=== PATIENT | female | born 1955 | race Caucasian/White ===

== ENCOUNTER → 2018-07-09 | Outpatient (CLI) | payer BC | LOC: MC.RAD 08:50 | DX: Z12.31 Encounter for screening mammogram for malignant neoplasm of breast (principal) ==

== ENCOUNTER 2019-02-26 08:49 | Inpatient (IN) | payer BC ==
[~2019-02-26] VITALS: Ht 157.5 cm; Wt 44.5 kg
[2019-02-26] VITALS (10 sets, daily range): BP systolic 104–119; BP diastolic 55–61; PULSE 62–82; TEMP 98.1–98.5
[2019-02-26] MEDS ORDERED: NORVASC 10MG10 MG PO (09:50)
[2019-02-26] MEDS ORDERED: COZAAR100 MG PO (09:50)
[2019-02-26] MEDS ORDERED: MULTI VITAMINS1 TAB PO (09:51)
[2019-02-26 09:54] LABS: INR 0.9 (0.8-3.0)
[2019-02-26 09:57] LABS: PARTIAL THROMBOPLASTIN TIME 28.6 SECONDS (26.0-37.0)
[2019-02-26 09:59] LABS: BASO % 0.4 % (0.0-2.0); GRAN # 6.6 (1.4-6.5); GRAN % 79.6 % (42.2-75.2); HEMOGLOBIN 12.7 g/dl (12.5-16.0); LYMPH # 0.8 (1.2-3.4); LYMPH % 9.3 % (20.0-51.0); MEAN CELL VOLUME 98 fl (80.0-100.0); MEAN CORPUSCULAR HEMOGLOBIN 33 pg (27.0-31.0); MEAN CORPUSCULAR HGB CONC 33 g/dl (33.0-37.0); MEAN PLATELET VOLUME 10.2 fl (7.4-10.4); MONO # 0.9 (0.1-0.6); MONO % 10.3 % (1.7-9.3); PLATELET COUNT 255 K/mm3 (130-400); RED BLOOD COUNT 3.86 M/mm3 (4.10-5.30); REDCELL DISTRIBUTION WIDTH-CV 12.5 % (11.5-14.5)
[2019-02-26 10:03] LABS: ALBUMIN 4.7 gm/dL (3.5-5.0); BILIRUBIN,TOTAL 0.7 mg/dL (0.0-1.0); C-REACTIVE PROTEIN 1.2 mg/dL (0.0-0.9); CALCIUM 10.6 mg/dL (8.4-10.2); CREATININE, serum 0.59 (0.52-1.25); POTASSIUM 3.6 mmol/L (3.4-5.0); TOTAL PROTEIN 8.2 gm/dL (6.4-8.2)
[2019-02-26] MEDS ORDERED: VITAMIN D 1001000 IU PO (11:09)
--- NOTE | 2019-02-26 12:20 | NUR ---
PATIENT ADMITED FROM IN INTO ROOM 325 WITH LEFT HIP FX AND LEFT WRIST SPRAIN WITH BRACE INPLACE. LLE IS EXTERNALLY ROTATED AND SHORTENED. PATIENT NOT C/O PAIN AT REST. PATIENT GIVEN FENTANYL IN ER. POSITIVE PEDAL PULSES TO BLE. TEDS TO RLE. SCDS TO BLE. ARANDA TO DEPENDENT DRAINAGE WITH SMALL AMOUNTS OF KERI COLORED URINE NOTED. IV FLUIDS INFUSING VIA PUMP INTO RIGHT AC IV. HEAD TO TOE ASSESSMENT WNL. AT BEDSIDE. ORIENTED TO ROOM. VSS. NPO. SEE ORDERS.
--- NOTE | 2019-02-26 12:30 | NUR ---
ORTHO AT BEDSIDE.
--- NOTE | 2019-02-26 12:50 | NUR ---
HOSPITALIST AT BEDSIDE.
[2019-02-26 13:06] LABS: COLLECTION METHOD CATHETER
[2019-02-26 13:25] LABS: PH 7 (5-8); SQUAMOUS EPITHELIAL 0-2 /hpf; URINE APPEARANCE Clear; URINE BACTERIA None Seen /hpf; URINE BILIRUBIN Negative (NEGATIVE); URINE BLOOD Negative (NEGATIVE); URINE COLOR Yellow; URINE GLUCOSE Negative (NEGATIVE); URINE KETONE Trace (NEGATIVE); URINE LEUKOCYTE ESTERASE Negative (NEGATIVE); URINE NITRATE Negative (NEGATIVE); URINE PROTEIN(semi-quant) Negative (NEGATIVE); URINE RBC 0-2 /hpf; URINE UROBILINOGEN Negative (NEGATIVE)
--- NOTE | 2019-02-26 17:40 | NUR ---
PATIENT BACK IN ROOM 325 POST OP LEFT HIP HEMIARTHROPLASTY. LEFT HIP DRESSING IS CD&I WITH AQUACEL AND ICE PACK INPLACE. POSITIVE PEDAL PULSES TO BLE. TEDS & SCD'S TO BLE. ARANDA TO DEPENDENT DRAINAGE WITH SMALL AMOUNTS OF CLEAR YELLOW URINE NOTED. IV FLUIDS INFUSING INTO RIGHT AC IV. HEAD TO TOE WNL. VSS. NO C/O PAIN. AT BEDSIDE. CALL LIGHT IN REACH. STUDENT NURSE WORKING WITH PATIENT TODAY.
--- NOTE | 2019-02-26 18:08 | NUR ---
pt spouse is here to visit. complains of eye irritation and tearing. pt resting in bed, lowest position, call light in reach.
--- NOTE | 2019-02-26 20:43 | NUR ---
PATIENT COMPLAINS OF PAIN TO LEFT HIP, 11/04. MEDICATED WITH SCHEDULED ES TYLENOL AND IV TORADOL 15MG. AQUACEL D/I. HAS SPLINT TO LEFT FOREARM, FINGERS ARE WARM TO TOUCH AND WIGGLES THEM WITHOUT PROBLEM. IVF INFUSING TO RIGHT AC WITHOUT REDNESS OR SWELLING. PATIENT DID NOT EAT SUPPER AND IS NOT DRINKING MUCH FLUID. ARANDA PATENT WITH YELLOW URINE.
[2019-02-27] VITALS (7 sets, daily range): BP systolic 93–120; BP diastolic 47–60; PULSE 66–86; TEMP 98–99.8
--- NOTE | 2019-02-27 01:15 | NUR ---
PATIENT REPORTS PAIN 7/10 TO LEFT HIP. MEDICATED WITH NORCO 7.5MG 1 TAB AT THIS TIME.
--- NOTE | 2019-02-27 03:00 | NUR ---
PATIENT REPORTS GOOD PAIN RELIEF WITH NORCO.
[2019-02-27 06:53] LABS: BASO % 0.5 % (0.0-2.0); EOS # 0.1 (0.0-0.7); EOS % 1.4 % (0-4.0); GRAN # 3.5 (1.4-6.5); LYMPH # 1.2 (1.2-3.4); LYMPH % 21.3 % (20.0-51.0); MEAN CELL VOLUME 100 fl (80.0-100.0); MEAN CORPUSCULAR HGB CONC 33 g/dl (33.0-37.0); MEAN PLATELET VOLUME 10.7 fl (7.4-10.4); MONO # 0.8 (0.1-0.6); MONO % 13.6 % (1.7-9.3); RED BLOOD COUNT 2.97 M/mm3 (4.10-5.30); REDCELL DISTRIBUTION WIDTH-CV 12.6 % (11.5-14.5)
[2019-02-27 07:02] LABS: CALCIUM 8.4 mg/dL (8.4-10.2); CREATININE, serum 0.54 (0.52-1.25); POTASSIUM 3.3 mmol/L (3.4-5.0)
[2019-02-27 07:19] LABS: HEMATOCRIT 29.7 % (37.0-47.0); HEMOGLOBIN 9.9 g/dl (12.5-16.0); MEAN CORPUSCULAR HEMOGLOBIN 33 pg (27.0-31.0); PLATELET COUNT 148 K/mm3 (130-400)
--- NOTE | 2019-02-27 07:46 | NUR ---
SWATHI RENAE CALLED AND NOTIFIED OF PATIENTS HGB:9.9 AND PLT OF 148. RE-CHECK CBC IN AM TORB BIANCA SILVA TO THIS NURSE.
--- NOTE | 2019-02-27 08:00 | NUR ---
SEE MORNING ASSESSMENT.
--- NOTE | 2019-02-27 10:44 | NUR ---
SW met with the patient to discuss discharge plan. The patient lives in [place] with her , Geovanny (ph#[phone]). She reports independence with ADLs and does not have any DME. The patient's PCP is Dr. Elba Rose and she receives her medications at [facility]. She reports no difficulties obtaining her meds. The patient does not have advanced directives completed, but she was interested in obtaining a form for DPOA-HC. THOMAS provided. The patient has a left hip fracture. THOMAS discussed post-acute rehab. The patient reports that she would like to see how she does with PT, before making a decision on the type of therapy she will need. PT/OT have been ordered. SW to continue to follow.
--- NOTE | 2019-02-27 11:58 | NUR ---
stopped by but nothing needed at this time.
--- NOTE | 2019-02-27 12:06 | NUR ---
PATIENT REPORTS THAT HER PAIN IS A 6/10 TO THE LEFT HIP AND THIGH AFTER TAKING NORCO. PATIENT DESCRIBES THE PAIN AN ACHY PAIN. PATIENT GIVEN A DOSE OF PRN TORADOL IV. WILL CONTINUE TO MONITOR.
--- NOTE | 2019-02-27 12:36 | NUR ---
UPON REASSESSMENT THE PATIENT STATES THAT HER PAIN IS NOW A 3/10 ON A 0-10 SCALE.
--- NOTE | 2019-02-27 18:05 | NUR ---
PATIENTS ARANDA CATHETER DISCONTINUED PER DR. ORDERS. PATIENT TOLERATED WELL.
--- NOTE | 2019-02-27 18:10 | NUR ---
PATIENT VOIDING POST ARANDA REMOVAL WITHOUT ANY DIFFICULTY.
--- NOTE | 2019-02-27 19:05 | NUR ---
REPORT GIVEN TO MONAE HINES.
[2019-02-27 20:05] LABS: HEMATOCRIT 28.7 % (37.0-47.0); HEMOGLOBIN 9.6 g/dl (12.5-16.0)
[2019-02-28 02:20] VITALS: BP 119/61; PULSE 81; TEMP 98.4
[2019-02-28 06:58] LABS: BASO # 0.1 (0.0-0.2); BASO % 0.6 % (0.0-2.0); EOS # 0.1 (0.0-0.7); EOS % 1.6 % (0-4.0); GRAN # 6.5 (1.4-6.5); GRAN % 74.6 % (42.2-75.2); LYMPH # 0.9 (1.2-3.4); LYMPH % 10.2 % (20.0-51.0); MEAN CELL VOLUME 100 fl (80.0-100.0); MEAN CORPUSCULAR HGB CONC 34 g/dl (33.0-37.0); MONO # 1.1 (0.1-0.6); MONO % 12.7 % (1.7-9.3); PLATELET COUNT 163 K/mm3 (130-400); RED BLOOD COUNT 2.93 M/mm3 (4.10-5.30); REDCELL DISTRIBUTION WIDTH-CV 12.3 % (11.5-14.5)
[2019-02-28 07:01] LABS: HEMATOCRIT 29.2 % (37.0-47.0); HEMOGLOBIN 9.8 g/dl (12.5-16.0); MEAN CORPUSCULAR HEMOGLOBIN 33 pg (27.0-31.0)
[2019-02-28 07:06] LABS: CREATININE, serum 0.54 (0.52-1.25); MAGNESIUM 1.6 mg/dL (1.6-2.3); POTASSIUM 3.7 mmol/L (3.4-5.0)
--- NOTE | 2019-02-28 07:10 | NUR ---
RESTING QUIETLY/SLEEPING. NO N/V. NEW ICE APPLIED.
--- NOTE | 2019-02-28 08:00 | NUR ---
PATIENT IS AMBULATING IN HALLS WITH PT THIS MORNING. UPON ENTRY TO THE ROOM THE PATIENT IS RESTING IN BED. PATIENT IS A&OX4. VSS. BOWEL SOUNDS ACTIVE ALL FOUR QUADRANTS. PATIENT TOLERATING DIET WITHOUT ANY COMPLAINTS OF N/V. INT TO RUE. BRACE TO LEFT WRIST. AQUACEL TO LEFT HIP WITH SCANT AMOUNT OF SHADING PRESENT ON DRESSING. POSITIVE PEDAL PULSES EQUAL BILATERALLY. CAP REFILL <3 SECONDS. CMS INTACT. [place] TO BLE. CALL LIGHT WITHIN REACH. PATIENT DENIES ANY NEEDS AT THIS TIME.
[2019-02-28 08:14] VITALS: BP 113/58; PULSE 91; TEMP 97.8
[2019-02-28 12:26] VITALS: BP 110/62; PULSE 83; TEMP 99.1
[2019-02-28 16:20] VITALS: BP 124/49; PULSE 78; TEMP 98.3
--- NOTE | 2019-02-28 19:30 | NUR ---
REPORT GIVEN TO MONAE BRANTLEY.
--- NOTE | 2019-02-28 20:00 | NUR ---
Report received. Assumed care for third shift lieutenant. A&Ox3. Assessment complete. VS stable. Denies pain. Has had loose stools x3-requesting stool softners to be held. Dressing to left hip with small amount of old drainage. Soft splint to left arm. Denies pain. Fresh ice pack given. Call light in reach/bed in low/wheels locked. Will monitor.
[2019-02-28 20:20] VITALS: BP 121/52; PULSE 83; TEMP 99.5
[2019-03-01 04:20] VITALS: BP 122/48; PULSE 79; TEMP 98.9
[2019-03-01 07:03] LABS: BASO % 0.6 % (0.0-2.0); EOS # 0.1 (0.0-0.7); EOS % 1.7 % (0-4.0); GRAN % 71.5 % (42.2-75.2); LYMPH # 0.9 (1.2-3.4); LYMPH % 12.6 % (20.0-51.0); MEAN CELL VOLUME 101 fl (80.0-100.0); MEAN CORPUSCULAR HGB CONC 33 g/dl (33.0-37.0); MEAN PLATELET VOLUME 10.1 fl (7.4-10.4); MONO # 0.9 (0.1-0.6); MONO % 13.3 % (1.7-9.3); PLATELET COUNT 168 K/mm3 (130-400); RED BLOOD COUNT 2.94 M/mm3 (4.10-5.30); REDCELL DISTRIBUTION WIDTH-CV 12.4 % (11.5-14.5)
[2019-03-01 07:04] LABS: HEMATOCRIT 29.8 % (37.0-47.0); HEMOGLOBIN 9.9 g/dl (12.5-16.0); MEAN CORPUSCULAR HEMOGLOBIN 34 pg (27.0-31.0)
[2019-03-01 07:17] VITALS: BP 112/62; PULSE 73; TEMP 98
[2019-03-01] MEDS ORDERED: ASPI325T6 PO (09:07)
[2019-03-01] MEDS ORDERED: TYLENOL 325MG325 MG PO (09:08)
[2019-03-01 11:26] VITALS: BP 131/67; PULSE 70; TEMP 97.8
--- NOTE | 2019-03-01 11:29 | NUR ---
Customer Support Engineer met with the patient following clinical rounds. Patient to discharge today. It was discussed at rounds that patient likely too high functioning for IPR. Patient was open to outpatient Physical Therapy. provided list of outpatient providers in [place] to Bethany LICONA. Bethany reports patient chose [facility] and first appointment will be set up for patient prior to discharge. No additional concerns at this time.
--- NOTE | 2019-03-01 11:50 | NUR ---
PATIENT GETTING INTO SHOWER
--- NOTE | 2019-03-01 12:13 | NUR ---
First visit from the computational mathematician. No needs right now.
--- NOTE | 2019-03-01 13:00 | NUR ---
PATIENT GIVEN DISCHARGE INSTURCTIONS, PRESCRIPTIONS & FOLLOW UP APTS. ANSWERED ALL QUESTIONS/CONCERNS. DC'D IV SITE, COVERED WITH GAUZE & COBAN. PATIENT DRESSED AND READY FOR DISCHARGE. PATIENT IS WAITING FOR HER WALKER TO BE DELIVERED. SEE DISCHARGE ORDERS.
--- NOTE | 2019-03-01 13:28 | NUR ---
Golf Course Keeper met with the patient to discuss need for platform walker. SW presented patient choice form for DME and patient selected [facility] and provided signature. THOMAS obtained signature from BIANCA Valencia on DME order. THOMAS faxed DME order and other referral information to [facility]. THOMAS made contact with Annie of [facility] who adivsed they would deliver as soon as possible. THOMAS provide update to patient and MONAE Sims.
--- NOTE | 2019-03-01 14:45 | NUR ---
PATIENT IS TIRED OF WAITING FOR WALKER, [employer] CALLED AND WILL LINT CLEANER ON HIS WAY HOME. PATIENT DISCHARGED VIA WC TO PERSONAL VEHICLE.
== END 2019-03-01 14:45 | disposition home or self-care (01) | DRG 470 ==
LOC: COL.ER 08:49 → SURG 11:03
PROVIDERS: Nurse Practitioner Family; Orthopaedic Surgery Sports Medicine; Physician Assistant; ADMIT Orthopaedic Surgery
PROC: 0SRS019 Replacement of Left Hip Joint, Femoral Surface with Metal Synthetic Substitute, Cemented, Open Approach (ICD-10-PCS; principal; 2019-02-26 14:30)
DX: S72.002A Fracture of unspecified part of neck of left femur, initial encounter for closed fracture (principal); S52.612A Displaced fracture of left ulna styloid process, initial encounter for closed fracture; I10 Essential (primary) hypertension; W18.30XA Fall on same level, unspecified, initial encounter; F17.210 Nicotine dependence, cigarettes, uncomplicated; Y93.89 Activity, other specified; Y99.8 Other external cause status; Y92.009 Unspecified place in unspecified non-institutional (private) residence as the place of occurrence of the external cause; Z88.8 Allergy status to other drugs, medicaments and biological substances; R55 Syncope and collapse; D64.9 Anemia, unspecified; I95.9 Hypotension, unspecified; E87.6 Hypokalemia
CPT/HCPCS: 99222-AI; 99232-AI; 99239; A9284; C1713; C1776; J0171; J1885; J2405; J2704; J3010; J7030; Q4021

== ENCOUNTER 2019-04-23 14:55 | Outpatient (CLI) | payer BC ==
[~2019-04-23] VITALS: Ht 157.5 cm; Wt 65.5 kg
[~2019-04-23 14:55] MED LIST: ASPI325T6 PO; COZAAR100 MG PO; MULTI VITAMINS1 TAB PO; NORVASC 10MG10 MG PO; TYLENOL 325MG325 MG PO; VITAMIN D 1001000 IU PO
[2019-04-23 16:00] VITALS: BP 104/51; PULSE 74; TEMP 97.6
== END 2019-04-23 16:31 | disposition home or self-care (01) ==
LOC: EUO 14:55
DX: M81.0 Age-related osteoporosis without current pathological fracture (principal)
CPT/HCPCS: J3489

== ENCOUNTER 2020-04-24 14:17 | Outpatient (CLI) | payer BC ==
[~2020-04-24 14:17] MED LIST changes: +LIDODERM 5% PATC1 EA TP; +NORCO 325 MG-51 TAB PO; +NORVASC2.5 MG PO
[2020-04-24 15:01] VITALS: BP 115/55; PULSE 78; TEMP 98.1
== END 2020-04-24 19:23 | disposition home or self-care (01) ==
LOC: EUO 14:17
DX: M81.0 Age-related osteoporosis without current pathological fracture (principal)
CPT/HCPCS: J3489

== ENCOUNTER → 2020-07-07 | Outpatient (CLI) | payer BC | LOC: MC.RAD | DX: Z12.31 Encounter for screening mammogram for malignant neoplasm of breast (principal) ==

== ENCOUNTER 2021-04-26 14:36 | Outpatient (CLI) | payer BC ==
[~2021-04-26] VITALS: Ht 157.5 cm; Wt 41.0 kg
[~2021-04-26 14:36] MED LIST changes: -VITAMIN D 1001000 IU PO; +VITAMIN D31000 IU PO
[2021-04-26] MEDS ORDERED: NORVASC 10MG10 MG PO (15:30)
== END 2021-04-26 16:06 ==
LOC: EUO 14:36
DX: M81.0 Age-related osteoporosis without current pathological fracture (principal)
CPT/HCPCS: J3489

== ENCOUNTER → 2021-11-02 | Outpatient (CLI) | payer BC | LOC: MC.RAD 10:57 | DX: Z12.31 Encounter for screening mammogram for malignant neoplasm of breast (principal) ==

== ENCOUNTER 2023-06-02 12:44 | Outpatient (CLI) | payer MEDICARE, OTHER ==
[~2023-06-02] VITALS: Ht 157.5 cm; Wt 40.3 kg
[2023-06-02 13:03] VITALS: BP 117/69; PULSE 77; TEMP 98.5
== END 2023-06-02 13:47 | disposition home or self-care (01) ==
LOC: EUO 12:44
DX: M81.0 Age-related osteoporosis without current pathological fracture (principal)
CPT/HCPCS: J3489